=== PATIENT | male | born 1960 | race Caucasian/White ===

== ENCOUNTER 2020-04-13 06:29 | Outpatient (CLI) | payer BC, OTHER | END 2020-04-13 06:30 | disposition home or self-care (01) | LOC: LABBT 06:29 | PROVIDERS: ATTEND Neurological Surgery | DX: M54.12 Radiculopathy, cervical region (principal) | CPT/HCPCS: 87635; U0003 ==

== ENCOUNTER 2021-03-24 08:00 | Outpatient (CLI) | payer BC, OTHER ==
[2021-03-24 17:37] LABS: SARS-CoV-2 PCR by NAA Not Detected (NotDetected)
== END 2021-03-24 08:01 | disposition home or self-care (01) ==
LOC: LABBT 08:00
PROVIDERS: ATTEND Neurological Surgery
DX: Z01.818 Encounter for other preprocedural examination (principal); M54.12 Radiculopathy, cervical region; Z20.822 Contact with and (suspected) exposure to COVID-19
CPT/HCPCS: 93005; 93010; U0003; U0005

== ENCOUNTER 2021-03-29 08:04 | Day surgery (SDC) | payer BC, OTHER ==
[2021-03-28 10:27] VITALS: BMI 32.4
[2021-03-29] MEDS ORDERED: ceFAZolin Sodium (SDC) 2 GM/100 ML BAG ONE ×2 (08:31→13:50)
[2021-03-29] MEDS ORDERED: Fentanyl 100 MCG/2 ML VIAL ONE ×4 (08:36→12:22)
[2021-03-29] MEDS ORDERED: Midazolam HCl 2 mg/2 ml Vial ONE (08:36)
[2021-03-29] MEDS ORDERED: Thrombin 5000 UNITS/5 ML VIAL ONE (09:16)
[2021-03-29] MEDS ORDERED: Lidocaine 1% PF 5 ML VIAL ONE (10:05)
[2021-03-29] MEDS ORDERED: Esmolol 100 MG/10 ML VIAL ONE (10:05)
[2021-03-29] MEDS ORDERED: Glycopyrrolate 0.2 MG/ML 5 ML SYRINGE ONE (10:05)
[2021-03-29] MEDS ORDERED: Ketorolac Tromethamine 30 MG/ML VIAL ONE (10:05)
[2021-03-29] MEDS ORDERED: Ondansetron PF 4 MG/2 ML Vial ONE (10:05)
[2021-03-29] MEDS ORDERED: ePHEDrine 50 MG/ML VIAL ONE (10:05)
[2021-03-29] MEDS ORDERED: PROPOFOL 200 MG/20 ML VIAL ONE (10:05)
[2021-03-29] MEDS ORDERED: Dexamethasone 20 MG/5 ML VIAL ONE (10:05)
[2021-03-29] MEDS ORDERED: Rocuronium Bromide 10 MG/ML (10ML VIAL) ONE (10:05)
[2021-03-29] MEDS ORDERED: HYDROmorphone 2 MG/ML VIAL ONE (11:33)
[2021-03-29] MEDS ORDERED: Tamsulosin HCl 0.4 MG CAP ONE (12:22)
[2021-03-29] MEDS ORDERED: ceFAZolin 2 GM/DEX 5% 100 ML BAG ONE (14:00)
[2021-03-29] MEDS ORDERED: HYDROcodone/Acetaminophen 5/325 mg Tablet ONE (14:00)
== END 2021-03-29 14:58 | disposition home or self-care (01) ==
LOC: SDC 08:04
PROVIDERS: ATTEND Neurological Surgery
PROC: 0RG20A0 Fusion of 2 or more Cervical Vertebral Joints with Interbody Fusion Device, Anterior Approach, Anterior Column, Open Approach (ICD-10-PCS; principal; 2021-03-29)
DX: M54.12 Radiculopathy, cervical region (principal); G89.4 Chronic pain syndrome; I10 Essential (primary) hypertension; Z79.899 Other long term (current) drug therapy
CPT/HCPCS: 76000; C1713; C1776; J0690; J1100; J1170; J1885; J2250; J2405; J2704; J3010; J3490